=== PATIENT | male | born 1945 | race Caucasian/White ===

== ENCOUNTER → 2016-10-25 | Outpatient (CLI) | payer MEDICARE, OTHER ==
[~2016-10-25] VITALS: Ht 185.4 cm; Wt 107.5 kg
[~2016-10-25] MED LIST: ASP325T; ASP81CT PO; CATHETER FLUSH 10 ML SYR IV PRN; CLD600T; DOFE500C PO; LVST20T; MAGN400C PO; MAGNESIUM; MEGA RED; METO50TA7; MULT1TAB63; NAPROXEN; NF-ALLE180; OX05NA15; REGADENOSON 0.4 MG/5 ML SYR (LEXISCAN) IV ONE; WRF10T PO; WRF5T PO; ZINC; [UNRECOGNIZED DRUG - OTHER]; [UNRECOGNIZED DRUG - OTHER]
--- OUTSIDE RECORDS SUMMARY | 2016-10-25 11:38 | XMS REPORT | Continuity of Care Document ---
Author Author [facility] Organization [facility] Address Unknown Phone Unavailable Care Team Providers Care Curing Oven Attendant Name Role Phone Aretha Parish PCP [phone] Source Comments Some departments are not documenting in the electronic medical record. If you do not see the information that you expected, contact Release of Information in the Health Information Management department at [phone] for further assistance in locating additional records.[facility] Active Allergies and Adverse Reactions No Known Allergies Current Medications Prescription Sig. Disp. Refills Start End Date Status Date aspirin EC 81 mg tablet Take 81 mg by mouth at Active bedtime daily. lovastatin(+) (MEVACOR) Take 40 mg by mouth at Active 40 mg tablet bedtime daily. metoprolol XL (TOPROL XL) Take 200 mg by mouth at Active 100 mg tablet bedtime daily. vitamins, multiple Take 1 Tab by mouth Active (MULTIPLE VITAMINS DAILY) daily. tablet fish oil /omega-3 fatty Take 1 Cap by mouth Active acids (SEA-OMEGA) daily. 340/1000 mg capsule magnesium oxide (MAG-OX) Take 1 Tab by mouth twice 180 Tab 3 08/18/20 Active 400 mg tablet daily. 14 fexofenadine(+) (BRAXTON) Take 180 mg by mouth Active 180 mg tablet daily as needed. dofetilide (TIKOSYN) 500 1 Cap twice daily. 180 Cap 3 12/14/19 Active mcg capsule 16 warfarin (COUMADIN) 5 mg Take 5 mg by mouth daily. Active tablet Take 1 tablet (=5mg) by mouth daily on Sunday, Sunday, Sunday, and Sunday. Take 1.5 tablets (=7.5mg) by mouth daily on Sunday, & Sunday. Active Problems Problem Noted Date Paroxysmal atrial fibrillation (HCC) 11/16/2014 Pacemaker lead malfunction 08/13/2014 Cardiac pacemaker in situ 05/17/2011 Overview: 05/2009 Medtronic dual-chamber permanent pacemaker implantation L ast Assessment & Plan: Device was checked today in office. Pacing and sensing thresholds were stable as well as pacing lead impendances. There were no sensing integrity issues. No ventricular arrhythmias. 294 AHR. A paced approx 93%; V paced approx. 5%. No changes were made to his settings. Dyspnea on exertion 05/17/2011 Last Assessment & Plan: Complains of dyspnea when getting up from chair and walking briskly up stairs or carrying heavy items after he has been stationary. Symptoms seem to be consistent with possible inadequate rate response programming. Discussed for several minutes possibility of reprogramming, however opted not to make any changes as he feels well with any other exertional activity. He was instructed if symptoms do not improve or worsen to let us know so we can make adjustments to his device. He verbalized understanding. Dependent edema 05/17/2011 Last Assessment & Plan: Unchanged. Reports compression stocking resolve edema. Likely venous insufficiency give varicose veins present. Instructed to continue to wear compression socks and to follow up with pcp or Dr. Polanco if symptoms persist or worsen. He verbalized understanding. Cardiac Surveillance 12/14/2010 Overview: A. 11/22/2010. Echo done at [facility] in [place], [place] ordered by Dr. Polanco. Conclusion: 1. Mild LVH noted diffusely with good systolic function. No segmental wall motion abnormality. Estimated EF 60%. 2. LA dilatation. 3. Mild MR and TR. 4. Estimated PAP 35mmHg. Report sent for scanning into [employer]. B. 11/22/10. Lexiscan Myoview Stress test with Dr Polanco. Mild fixed defect at anterior apical segment and true apex of left ventricle. EF 67%. . No significant ischemia or infarction noted. Report sent for scanning to [employer]. C. 05/15/12 Exercise Myoview Stress Test with Dr. Polanco: 1. Excellent exercise tolerance, a total of 10 minutes, 11 seconds on standard Erik Protocol, achieving 97% max expected HR. 2. Minimal nondiagnostic EKG changes w/exercise, returned to baseline with recovery. 3. No significant ischemia or infarction on SPECt images. 4. Normal LV size with good contractility. 5. Calculated EF 69% D. 09/03/2013 - ECHO: LVEF ~ 60%. LA size=4.2 cm. Normal LV size and systolic function. Mild LVH noted diffusely. Mildly dilated LA. Mild MVR and TR. Estimated PAP ~ 30 mmHg. (Dr. Polanco). PAST MEDICAL HISTORY OF 07/11/2010 Overview: Past Medical History: 1. Atrial Fibrillation: Paroxysmal, documented in 09/21 but pt has been aware of palpitations since child. a. Symptoms of fatigue, flushing sensation, near syncope on occasion b. 02/23/09: Started Amiodarone 400mg daily, then stopped on 03/04/[address] Starks with cessation of amiodarone, lightheaded spells improved. c. 01/29/09: 24hr Holter Monitor: Min rate 49bpm at 4:26am, Max rate 173 at 16:11. Baseline SR but several episodes of AF with rates up to 173bpm, lasting minutes to about 7hrs with several pauses up to 2.7sec. Frequent VPDs. d. LA dimension by echo 09/2008: Normal. e. Metoprolol dose decreasing over month of February down to 50mg daily. Amiodarone discontinued. Plan on initiating Tikosyn 03/2009. f. Tachy joon syndrome. Will try and control rhythm to avoid permanent pacemaker. 2. Sinus bradycardia/ SA dysfunction (dating back to early 90s with heart rates in the 50's bpm range on metoprolol): 02/23/09 Sinus pauses on Holter up to 2.7sec- Metoprolol decreased to 50mg BID 3. Recurrent lightheadedness, likely related to post afib termination pauses, exacerbated by medical therapy, especially amiodarone, Toprol, etc., improving with decreasing doses. 4. LV function. a. ANA 09/23/08: Echogenic density noted in LA suggestive of thrombus, EF 60%, mild MR, TR. b. IRISH clot by ANA, 09/2008. 5. Coronary artery disease a. 1995: Pt reports having heart catheterization with stent placement, was done at [facility] in [place]. Pt reports he was told it was the " maker", 98% occlusion. Never had CP, found signs of ischemia on routine exam b. 09/22/08: Persantine Cardiolite stress test: Baseline AF w/ RVR (HR was 100- 160bpm) Mild diffuse hypokinesia, EF 51%; Mild decreased uptake at the anteroapical segment w/ no reversibility. 6. Hyperlipidemia, on therapy. 7. Mild carotid artery disease reported, anticipate secondary to duplex in the past. Surgical History 1. Right knee surgery x 3, 1997, 2006 and 2007 2. Hammertoe surgery x several 1994 3. Appendectomy 1963 4. Elbow bursa removal 1988 5. Hernia repair 1992 6. Rotator cuff R, 2002 Coronary atherosclerosis 07/07/2010 Overview: 1995: Pt reports having heart catheterization with stent placement, was done at [facility] in [place]. Pt reports he was told it was the " maker", 98% occlusion. Never had CP, found signs of ischemia on routine exam b. 09/22/08: Persantine Cardiolite stress test: Baseline AF w/ RVR (HR was 100- 160bpm) Mild diffuse hypokinesia, EF 51%; Mild decreased uptake at the anteroapical segment w/ no reversibility. Lexiscan Myoview Stress Test done 11/22/[address] Polanco's office: NSR baseline, conclusion reportedly demonstrated, no significant ischemia or infarction on Spect images and normal LV size with good systolic function, no segmental wall motion abnormality and EF of 67%. 04/23/2013 - Stress Test: No ischemia or infarction on SPECT images. Normal LV size with good contractility. EF=62%. Unreliable gated images d/t underlying AF. Baseline AF persisted throughout the test. ([facility]). 09/03/13 Echo- mild LV hypertrophy noted diffusely. Systolic function normal, EF 60%, LA mildly enlarged, no evidence of LAAA thrombus, mild mitral and tricuspid regurg, estimated PAP 30 mlHG L ast Assessment & Plan: Denies any symptomatic complaints. Reports underwent stress imaging at Dr. Polanco's office earlier this year which he reported was normal. Palpitations 07/07/2010 Carotid artery disease (HCC) 07/07/2010 Last Assessment & Plan: Reports managed by Dr. Polanco. Education about the importance of aggressively controlling risk factors was emphasized. He verbalized understanding. Sleep apnea 07/07/2010 Overview: 01/30/2011 - Progress Note says pt is utilizing CPAP for LULU. L ast Assessment & Plan: Mr. Bonds reports compliance with cpap. Discussion ensued about the risks associated with untreated sleep apnea and the importance of compliance with therapy. He verbalized understanding. Reports CPAP was recently reassessed a couple of months ago. Family history of cardiovascular disease-premature 07/07/2010 Family history of sudden cardiac (SCD) 07/07/2010 Atrial arrhythmia 03/17/2009 Overview: Atrial Fibrillation: Paroxysmal, documented in 09/21 but pt has been aware of palpitations since child. Symptoms of fatigue, flushing sensation, near syncope on occasion. 02/23/09: Started Amiodarone 400mg daily, then stopped on 03/04/[address] Starks with cessation of amiodarone, lightheaded spells improved. 01/29/09: 24hr Holter Monitor: Min rate 49bpm at 4:26am, Max rate 173 at 16:11. Baseline SR but several episodes of AF with rates up to 173bpm, lasting minutes to about 7hrs with several pauses up to 2.7sec. Frequent VPDs. LA dimension by echo 09/2008: Normal. Metoprolol dose decreasing over month of February down to 50mg daily. Amiodarone 11/16/14: EP study: Afib Ablation by MPE. discontinued. Plan on initiating Tikosyn 03/2009. Tachy joon syndrome. Will try and control rhythm to avoid permanent pacemaker--unsuccessful--48 hour monitor--Tachy-joon with PAFIB/ATACH with RVR and marked SBRAD with up to 6+ sec. post termination pause. 05/2009 Medtronic dual-chamber permanent pacemaker implantation 02/2009 Amiodarone initiated. Discontinued a week later for symptoms of flushing 03/2009 Tikosyn initiated 11/22/2010 - SPECT images show normal left ventricular size with good systolic function, estimated EF at 67%. From [facility]. 01/27/11 presented in atrial flutter per device. L ast Assessment & Plan: Mr. Bonds states he continues to be aware of his atrial arrhythmias, however reports overall he is asymptomatic with them. Since he was last seen in January his total atrial arrhythmia burden is 5%. Longest episode was 6 hours in the beginning of April. He reports he was in [place] at that time. He states while he does not note during the day when he is out of rhythm, he reports he does wake up at night noting his heart is pounding and out of rhythm. Looking at individual episodes, may of them occur in the morning hours.Once again, discussion ensued about his atrial arrhythmias and the treatment options at this time. Options discussed included: continuing antiarrhythmic drug therapy and catheter based radiofrequency ablation. At this time, as his arrhythmia burden is low and he is tolerating medications without difficulty, we will make no changes and reassess in 6 months. He was instructed to notify us if he notices his arrhythmias are more frequent or he is more symptomatic. Review of his EGMs demonstrate atrial flutter. If procedure is scheduled, we will plan on isthmus dependent ablation. Patient was educated that arrhythmias could potentially be an atypical atrial flutter which would then require a more complex procedure. He verbalized understanding. Of note, Mr. Bonds has changed insurance to his work and currently has [employer] coverage. Unfortunately, with that insurance is not a covered facility nor are any visits at our [facility] office. However, fortunately office visits through our OP office and [facility] office are covered. This obviously poses some issues with regard to pursuing an AFL ablation procedure which of course would be done at the [facility] as a part of the facility. Hyperlipidemia 03/17/2009 Overview: 01/23/2011 - Lipid profile: Cholesterol 181, HDL 59, Triglycerides 112, LDL 100. L ast Assessment & Plan: Reports managed by pcp. Given his known CAD, his LDL goal is less than 70. Resolved Problems Problem Noted Date Resolved Date Sinus bradycardia 07/07/2010 05/17/2011 Overview: Sinus bradycardia/ SA dysfunction (dating back to early with heart rates in the 50's bpm range on metoprolol): 02/23/09 Sinus pauses on Holter up to 2.7sec- Metoprolol decreased to 50mg BID. a. Plan Medtronic DDDR PPM implantation 05/23. 3. Recurrent lightheadedness, likely related to post afib termination pauses, exacerbated by medical therapy, especially amiodarone, Toprol, etc., improving with decreasing doses. Sinoatrial node dysfunction (HCC) 07/07/2010 05/17/2011 ICD (implantable cardiac defibrillator) lead failure 05/17/2009 05/17/2011 Most Recent Encounters Date Type Specialty Providers Description 09/26/2016 [facility] Cardiology Merrick Starks MD Encounter 09/20/2016 [facility] Cardiology Merrick Starks MD Encounter 09/20/2016 [facility] Cardiology Merrick Starks MD No Show Encounter 09/19/2016 [facility] Cardiology Merrick Starks MD Pacemaker lead - Encounter malfunction 09/20/2016 09/19/2016 Anesthesia Carlie Soto, VARNISH REMOVER Event 09/19/2016 Surgery Merrick Starks MD Extraction Right Atrial Lead 09/18/2016 Pre-Admit Cardiology Radha Rodriguez, SALES PROMOTION DIRECTOR-C Orders Only 09/13/2016 Documentation Cardiology Caitlin Cote Labs Only 08/28/2016 Documentation Cardiology Polly Muro, Labs Only - FROM January08/28/2016 Telephone Cardiology Rimma Patton, AV Other - postpone procedure to 09/1908/25/2016 Documentation Cardiology Radha Koch Records Request - Dr. Humza Parish [phone] 08/25/2016 Telephone Cardiology Daniella Vail, psychiatric social worker supervisor Request - Checking on pre procedure labs 08/23/2016 Documentation Cardiology Karri Lama RN Precertification - Medicare 08/22/2016 Pre-Procedure Cardiology Idania Shaw RN EP Pre- Procedure Instructions Instructions - atrial lead extraction 09/1908/22/2016 Pre-Admit Cardiology Idania Shaw RN Orders Only 08/16/2016 Office Visit Cardiology Merrick Starks MD Cardiac Eval - PAFIB; AFL; ATACH s/p RIght sided CTI and left sided AFIB RFA; sinus arrest s/p medtronic dual-chamber PPM 08/16/2016 [facility] Cardiology Merrick Starks MD Encounter 07/28/2016 Documentation Cardiology Polly Muro Anticoagulation - INR 3.5 RN - managed by PCP Immunizations Name Dates Previously Given Next Due Flu Vaccine 11/17/2014 Quadrivalent=>3 Yo (Preservative Free) Pneumococcal Vaccine 11/17/2014 (23-Mini Adult) Social History Tobacco Use Types Packs/Day Years Used Date Never Smoker Smokeless Tobacco: Never Used Alcohol Use Drinks/Week oz/Week Comments Yes 3 Cans of 2.4 beer 1 Glasses of wine Last Filed Vital Signs Vital Sign Reading Time Taken Blood Pressure 123/68 09/20/2016 10:12 AM CREDIT UNION TELLER Pulse 81 09/20/2016 10:12 AM CREDIT UNION TELLER Temperature 36.8 C (98.3 F) 09/20/2016 10:12 AM CREDIT UNION TELLER Respiratory Rate - - Height 1.854 m (6' 1") 09/20/2016 9:54 AM CREDIT UNION TELLER Weight 108.5 kg (239 lb 3.2 oz) 09/20/2016 9:54 AM CREDIT UNION TELLER Body Mass Index 31.57 09/20/2016 9:54 AM CREDIT UNION TELLER Oxygen Saturation 94% 09/20/2016 7:41 AM CREDIT UNION TELLER Plan of Care Date Type Specialty Providers Description 11/20/2016 Appointment Cardiology Merrick Starks MD [address] [place] [address] [phone] (Fax) 12/20/2016 Appointment Cardiology Merrick Starks MD [address] [facility] [address] [place] [address] [phone] (Fax) Health Maintenance Due Date Last Done Comments Hepatitis C Screening 1945 Physical (Comprehensive) 1953 Exam Pertussis Vaccine 1957 Tetanus Vaccine 1963 Colorectal Cancer 1996 Screening Shingles Vaccine 2006 Prevnar/Pneumovax (#2) 11/17/2015 11/17/2014 Influenza Vaccine 06/15/2016 11/17/2014 Procedures from Last 3 Months Procedure Name Priority Date/Time Associated Diagnosis Comments ECG UNCONFIRMED-SCAN 09/22/2016 Results for this 2:19 PM CREDIT UNION TELLER procedure are in the results section. ECG-SCAN 09/22/2016 Results for this 2:19 PM CREDIT UNION TELLER procedure are in the results section. TELEMETRY STRIPS-SCAN 09/22/2016 Results for this 2:15 PM CREDIT UNION TELLER procedure are in the results section. ECG-SCAN 09/21/2016 Results for this 9:01 AM CREDIT UNION TELLER procedure are in the results section. ECG-SCAN 09/20/2016 Results for this 7:15 AM CREDIT UNION TELLER procedure are in the results section. ANESTHESIA ARTERIAL LINE Routine 09/19/2016 Results for this INSERTION 12:33 PM CREDIT UNION TELLER procedure are in the results section. Results from Last 3 Months DEVICE EVALUATION - REMOTE PPM (09/26/2016 3:06 PM) Component Value Range Generator Model # ADVISA DR TERA A2DR01 Generator Serial # [id number] Generator Implnat Date 09/19/2016 Generator Commercial Real Estate Broker Medtronic Generator Investigational No Wireless Generator Yes Device Type DDD-PM Device [place] Carelink Express Transmitter Compatible Atrial Lead Model # CAPSUREFIX JACK 5076-52 Atrial Lead Serial # [id number] Atrial Lead Implant Date 09/19/2016 Atrial Lead Diaph. 10 Stimulation Atrial Lead Commercial Real Estate Broker Medtronic Atrial Lead No Investigational Atrial Lead Fixation active fixation Atrial Lead Pin Connector IS1 Atrial Lead Polarity Bipolar RV Lead Model # 5076-58CM RV Lead Serial # [id number] RV Lead Implant Date 08/17/2014 RV Lead Diaph. NA Stimulation RV Lead Commercial Real Estate Broker Medtronic RV Lead Investigational No RV Lead Pin Connector ICD IS1 Device Implanted By Merrick Starks M.D. Pacemaker Dependant No EP Device Followed By MAC Narrative Initial Carelink Transmission - NO CHARGE Current Monitoring Period: 09/26/16 through 12/24/16 [09/26/2016 3:06:21 PM - TERELL AUGUSTE] Carelink transmission received.Pt with PPM gen change and new RA lead implant on 09/19/16. Please see scanned data sheets for further review as needed.Pt is scheduled to follow up on 11/20/16 with MPE at the office. ECG UNCONFIRMED-SCAN (09/22/2016 2:19 PM) Narrative Ordered by an unspecified provider. ECG-SCAN (09/22/2016 2:19 PM) Narrative Ordered by an unspecified provider. TELEMETRY STRIPS-SCAN (09/22/2016 2:15 PM) Narrative Ordered by an unspecified provider. ECG-SCAN (09/21/2016 9:01 AM) Narrative Ordered by an unspecified provider. PV GROIN DUPLEX SCAN COMPLETE (09/20/2016 9:54 AM) Component Value Range Referring Provider Humza Parish RIGHT GROIN SFA SYS 0.93 m/s LEFT GROIN RETAIL PERSONAL BANKER SYS 0.57 m/s LEFT GROIN SFA SYS 0.58 m/s LEFT GROIN PFA SYS 0.42 m/s Narrative 1.Small AV fistula present at the right common femoral vein and superficial femoral artery.No pseudoaneurysm seen. 2.Normal left groin velocities and waveforms without significant stenosis.No AV fistula or pseudoaneurysm present on the visualized segments of the left groin. DEVICE EVALUATION - PPM (09/20/2016 9:31 AM)Only the most recent of 2 results within the time period is included. Component Value Range Generator Model # ADVISA DR HALEY A2DR01 Generator Serial # [id number] Generator Implnat Date 09/19/2016 Generator Investigational No Wireless Generator Yes Device Type DDD-PM Atrial Lead Model # CAPSUREFIX NOVUS 5076-52 Atrial Lead Serial # [id number] Atrial Lead Implant Date 09/19/2016 Atrial Lead Diaph. 10 Stimulation Atrial Lead Commercial Real Estate Broker Medtronic Atrial Lead No Investigational Atrial Lead Fixation active fixation Atrial Lead Pin Connector IS1 Atrial Lead Polarity Bipolar RV Lead Model # 5076-58CM RV Lead Serial # [id number] RV Lead Implant Date 08/17/2014 RV Lead Diaph. NA Stimulation RV Lead Commercial Real Estate Broker Medtronic RV Lead Investigational No RV Lead Pin Connector ICD IS1 Narrative [facility] IP Next daycheck following gen change and RA lead change and slack added to RV lead. Completed by MDT rep. WNL. See attached. 106 Aflutter events with A/V 247/84 bpm. Longest was 6 min. RV sensing form 2.0 to 1.2mV. R wave measured 3.4mV today. No implant measurement noted. Remote in place. Incision check and follow-up with Dr Starks scheduled. Report routed to him., ECG-SCAN (09/20/2016 7:15 AM) Narrative Ordered by an unspecified provider. CHEST 2 VIEWS (09/20/2016 5:27 AM) Impressions Explantation of previous cardiac conduction device with placement of a new cardiac conduction device as described. Approved by Carla Humphreys M.D. on 09/20/2016 11:01 AM By my electronic signature, I attest that I have personally reviewed the images for this examination and formulated the interpretations and opinions expressed in this report Finalized by Bret Wharton M.D. on 09/20/2016 5:29 PM. Dictated by Carla Humphreys M.D. on 09/20/2016 9:50 AM. Narrative CHEST 2 VIEWS HISTORY: Post device Implantation COMPARISON: August 18, 2014 FINDINGS: Explantation of previously noted cardiac conduction device with interval placement of a new dual lead cardiac conduction device with the battery pack in the left chest wall and intact right atrial and right ventricular leads. Cardiac silhouette is within normal limits. No pulmonary venous congestion. No pleural effusion, pneumothorax or focal consolidative process. Mild bibasilar atelectasis. Procedure Note Interface, Radiant Results - SunSep 20, 2016 5:33 PM CREDIT UNION TELLER CHEST 2 VIEWS HISTORY: Post device Implantation COMPARISON: August 18, 2014 FINDINGS: Explantation of previously noted cardiac conduction device with interval placement of a new dual lead cardiac conduction device with the battery pack in the left chest wall and intact right atrial and right ventricular leads. Cardiac silhouette is within normal limits. No pulmonary venous congestion. No pleural effusion, pneumothorax or focal consolidative process. Mild bibasilar atelectasis. IMPRESSION Explantation of previous cardiac conduction device with placement of a new cardiac conduction device as described. Approved by Carla Humphreys M.D. on 09/20/2016 11:01 AM By my electronic signature, I attest that I have personally reviewed the images for this examination and formulated the interpretations and opinions expressed in this report Finalized by Bret Wharton M.D. on 09/20/2016 5:29 PM. Dictated by Carla Humphreys M.D. on 09/20/2016 9:50 AM. MAGNESIUM (09/20/2016 4:23 AM)Only the most recent of 2 results within the time period is included. Component Value Range Magnesium 1.9 1.6-2.6 mg/dL CBC (09/20/2016 4:23 AM)Only the most recent of 2 results within the time period is included. Component Value Range White Blood Cells 8.7 4.5-11.0 K/UL RBC 3.70 (L) 4.4-5.5 M/UL Hemoglobin 11.3 (L) 13.5-16.5 GM/DL Hematocrit 34.5 (L) 40-50 % MCV 93.3 80-100 FL MCH 30.4 26-34 PG MCHC 32.6 32.0-36.0 G/DL RDW 13.4 11-15 % Platelet Count 155 150-400 K/UL MPV 9.7 7-11 FL BASIC METABOLIC PANEL (09/20/2016 4:23 AM)Only the most recent of 3 results within the time period is included. Component Value Range Sodium 142 137-147 MMOL/L Potassium 3.8 3.5-5.1 MMOL/L Chloride 110 98-110 MMOL/L CO2 26 21-30 MMOL/L Anion Gap 6 3-12 Glucose 109 (H) 70-100 MG/DL Blood Urea Nitrogen 10 7-25 MG/DL Creatinine 1.10 0.4-1.24 MG/DL Calcium 8.2 (L) 8.5-10.6 MG/DL eGFR Non >60Comment: >60 mL/min The eGFR is not validated for use in drug dosing adjustments. Continue to use estimated creatinine clearance per dosing reference text. Please contact the Clinical Pharmacist for questions. eGFR >60Comment: >60 mL/min The eGFR is not validated for use in drug dosing adjustments. Continue to use estimated creatinine clearance per dosing reference text. Please contact the Clinical Pharmacist for questions. Specimen Blood PROTIME INR (PT) (09/20/2016 4:23 AM) Component Value Range INR 1.5 (H) 0.8-1.2 Specimen Blood EP DEVICE (09/19/2016 6:08 PM) Component Value Range Generator Model # ADVISA DR HALEY A2DR01 Generator Serial # [id number] Generator Implnat Date 09/19/2016 EP Generator Explant Medtronic 08/17/2014 Explanted Generator ADAPTA L ADDRL1 Model# EXPLANTED GENERATOR [id number] SERIAL# Generator Investigational No Generator Location Left Wireless Generator Yes Device Type DDD-PM Atrial Lead Model # CAPSUREFIX NOVUS 5076-52 Atrial Lead Serial # [id number] Atrial Lead Implant Date 09/19/2016 Atrial Lead Diaph. 10 Stimulation Atrial Lead Explant [employer] 05/18/2009 Manufacture Number EP ATRIAL LEAD EXPLANTED 4076-52cm MODEL# EP ATRIAL LEAD EXPLANTED [id number] SERIAL# Atrial Lead [employer] Atrial Lead No Investigational Atrial Lead Fixation active fixation Atrial Lead Pin Connector IS1 Atrial Lead Polarity Bipolar RV Lead Model # 5076-58CM RV Lead Serial # [id number] RV Lead Implant Date 08/17/2014 RV Lead Diaph. NA Stimulation RV Lead [employer] RV Lead Investigational No RV Lead Pin Connector ICD IS1 RV Lead Polarity Bipolar Narrative Extraction and ReImplantation Procedure - of RA lead housekeeper: Merrick Starks MD Fellow: Gustavo Bryson MD PROCEDURE: --Left femoral vein access and insertion of temporary pacing wire in to right ventricular apex under fluroscopy. --Extraction of right Atrial pacemaker Lead using locking stylet and K[employer]et[employer] shorty sheath. --Implantation of new RA pacemaker lead --Revision of right Ventricular pacemaker - by adding slack. --Explantation/Removal of prior Device Generator from the pocket --New MRI compatible pacemaker generator --Intra op ANA monitoring --Removal of temorary pacing wire from RV under fluoroscopic guidance --Left upper extremity venogram Indication: RA lead impedence spike suggesting fracture of A lead.He is 91% V paced. Consent: Informed consent was obtained from the patient, after detail discussion of the risks and benefits of the procedure, as well as the other options available for device-system management.The patient was placed supine on the fluoroscopy table. Anesthesia and ANA: Next the pt underwent intubation and sedation per General anesthesia. Anesthesia placed a ANA probe and imaging of the heart was done.There was no evidence of significant pericardial effusion. The ANA probe was left in place to allow for continuous monitoring and to assess for the development of any pericardial effusion throughout the entire procedure. Post op ANA showed no effusion post lead removal. Procedure: Next the pt was prepped and draped using the protocol for open heart surgery/lead extraction--neck to below groins and bilaterally. The left femoral vein was anesthetized with 0.25 percent Marcaine for local anesthesia. Since he had right groin continuous bruit, we obtained left femoral venous access and advanced an RV temporary pacing catheter into the heart. It was positioned for back-up temporary pacing.The pacing threshold was adequate and it was programmed to at least 10 mAmps and VVI 40.The patient's underlying rhythm was stable. The patient had a radial intra-arterial line placed for continuous BP monitoring. Attention was then turned to left infraclavicular region.0.25 % Marcaine for local anesthesia was instilled into the region of the patient's prior scar and pocket. An incision was made over the prior incision. The incision was extended to the prior ICD generator pocket.Pocket was incised. The patient was made VOO from the temporary pacemaker since he was dependent. We then tried to access the left axillary vein but could not get into the vein with our micropuncture access needle. We performed a left upper extremity venogram. This showed that the left axillary vein did not fill well. There seemed to be dye flowing into the axillary vein from the limb but the left subclavian vein started to fill at the border of clavicle and 1st rib. There seemed to be a large collateral that was filling this part of subclavian vein. We tried to get access at the axillary vein but could not enter the vein so we got a medial access at the subclavian vein. We then left a 032 J wire in the IVC. Dissection was done to release the RA lead from the lead pocket. The suture sleeve was released. The lead was disconnected and we were able to advance the stylet to the to the distal tip of the RA lead. We then retracted the helix on the tip of the RA lead. Then with gentle traction we could actually pull it out of the heart and up to the left innominate vein. Surprisingly there was very little scar tissue and so we did not need any extraction tools for the RA lead in the heart. However to overcome adhesions in the innominate vein we had to use a 11Fr shorty [employer] tightrail mechanical sheath. We cut the end of the RA lead. We passed an EZ locking stylet and secured it using a one-tie. We then advanced our shorty sheath into the innominate vein. We could dissect through the scar around the lead in the innominate vein and the lead came out. We put a purse string suture to stem the backbleed from the hole left in the chest wall. We then advanced a long sheath over the J wire we had left in the IVC. We advanced a new RA lead and implanted it in the RA appendage with good sensing and pacing threshold without diaphragmatic stimulation. We then noticed that the RV lead had lost some slack. So we released its retaining suture sleeve and advanced a stylet and were able to add slack to the RV lead. Sensing and pacing numbers remained the same as before. Both the RA and RV leads were secured to the pocket. Pocket was washed with antibiotic solution. We used tyrex abx pouch. We then closed the wound in three layers using 4 O and 2 O Vicryl. The patient's blood pressure was monitored and was stable throughout the entire procedure.We also intermittently reviewed the live ANA images to ensure there is no pericardial effusion accumulation. The patient tolerated the procedure well. Assessment: Successful extraction of fractured RA lead Implantation of new RA lead Addition of RV lead slack. Plan: CXR in AM Device check in AM ANESTHESIA ARTERIAL LINE INSERTION (09/19/2016 12:33 PM) Cesar Soto CRNA 09/19/2016 12:33 PM Anesthesia Procedure: Arterial Line Placement A-LINE INSERTION Date/Time: 09/19/2016 12:20 PM Patient location: OR Indications: hemodynamic monitoring Staff Performed by: CARLIE SOTO Preprocedure checklist performed: 2 patient identifiers, risks & benefits discussed, patient evaluated, timeout performed, consent obtained, patient being monitored and sterile drape Sterile technique: - Proper hand washing - Cap, mask - Sterile gloves - Skin prep for antisepsis Arterial Line Procedure Sedation type: general; Artery prepped with chlorhexidine; skin prep agent completely dried prior to procedure. Location: radial artery Technique: palpation Needle gauge: 20 G Number of attempts: 1 Procedure Outcome Catheter secured with adhesive dressing applied Events: no complications noted during insertion TYPE & CROSSMATCH (09/19/2016 10:15 AM) Component Value Range Units Ordered 2 Crossmatch Expires 09/22/2016 Record Check FOUND ABO/RH(D) O POS Antibody Screen NEG Electronic Crossmatch YES Unit Number [id number] Blood Component Type RBC,ADSOL,LEUKO REDUCED,2ND CONT. Unit Division 0 Status OF Unit REL FROM ALLOC Transfusion Status OK TO TRANSFUSE Crossmatch Result COMPATIBLE,ELECTRONIC Unit Number [id number] Blood Component Type RBC,ADSOL,LEUKO REDUCED,1ST CONT. Unit Division 0 Status OF Unit REL FROM ALLOC Transfusion Status OK TO TRANSFUSE Crossmatch Result COMPATIBLE,ELECTRONIC Specimen Blood POC PT/INR (09/19/2016 10:14 AM) Component Value Range INR POC 1.2 0.8-1.2 CBC AND DIFF (08/23/2016) Component Value Range White Blood Cells 5.8 RBC 4.22 Hemoglobin 13.4 Hematocrit 39.9 MCV 94.6 MCH 31.6 MCHC 33.4 Platelet Count 169 MPV 10.4 RDW 13.9 Neutrophils 77 Absolute Neutrophil Count 4466 Lymphocytes 14.6 Absolute Lymph Count 847 (L) [id number] Monocytes 5.4 Absolute Monocyte Count 313 Eosinophil 2.3 Absolute Eosinophil Count 133 Basophils 0.7 Absolute Basophil Count 41 Specimen Blood
[2016-10-25 13:00] VITALS: BP 136/82
--- NOTE | 2016-10-26 08:50 | STRESS TEST ---
PROCEDURE PHYSICIAN: JACKIE ISSA DATE OF PROCEDURE: 10/25/2016 LEXISCAN MYOVIEW STRESS TEST REPORT: REFERRING PHYSICIAN: Dr. Merrick Parish BASELINE HEART RATE: 85 BASELINE BLOOD PRESSURE: 136/82 BASELINE EKG: Sinus rhythm with no ischemic changes. IN SUMMARY: The patient was injected with 10.58 mCi of technetium 99 Myoview and the resting images were obtained. Then the patient received 0.4 mg of Lexiscan followed by 30 mCi of technetium 99 Myoview. Throughout the test, there were no EKG changes. The resting and stress images were reviewed and compared in the short axis, horizontal long axis, and vertical long axis views. Review of the images showed good radiotracer uptake with no ischemia or infarction on SPECT images. SSS is 1, SDS 1, TID value 1.06. On the gated images, the left ventricle appeared to be normal size with normal contractility. Calculated ejection fraction 60%. IN CONCLUSION: 1. The patient tolerated Lexiscan well. 2. No ischemia or infarction on SPECT images. 3. Normal left ventricular size with normal contractility. Calculated ejection fraction 60%. Job ID: [id number] Dictated Date: 10/25/2016 16:16:08 Clerical Office Date: 10/26/2016 08:45:52 / [email or web address]
== END ==
LOC: CARD 11:33
PROVIDERS: ATTEND Internal Medicine Cardiovascular Disease
DX: R06.09 Other forms of dyspnea (principal); I47.2 Ventricular tachycardia; I25.10 Atherosclerotic heart disease of native coronary artery without angina pectoris; I10 Essential (primary) hypertension
CPT/HCPCS: 78452; 93017